=== PATIENT | male | born 1960 | race Caucasian/White ===

== ENCOUNTER → 2018-02-06 | Day surgery (SDC) | payer BC, OTHER ==
[2018-01-31 10:25] VITALS: BMI 29.0
[~2018-02-06] VITALS: Ht 185.4 cm; Wt 102.3 kg
[~2018-02-06] MED LIST: ASPCH81X PO; CHOL1TAB46 PO; DIPH25CA65 PO; EMPA1TAB3 PO; EZET10TA63 PO; FENO134C PO; FENTANYL CITRATE INJ 50 MCG/1 ML 2 ML VIAL ONE; FLUT50SP45 NAE; INSU1.2I SC; LIDOCAINE HCL 2% 2 ML VIAL (20MG/ML) ONE; LOSA50TA6 PO; METF1TAB53 PO; OMEG10007 PO; PROPOFOL IV EMULSION 10 MG/ML 20 ML VIAL IV ONE; RANITAB6 PO; SIME1CAP14 PO
[2018-02-06 10:58] VITALS: Ht 185.4 cm; Wt 102.3 kg
--- NOTE | 2018-02-06 11:52 | Endo History and Physical ---
History & Physical Date of Service: Feb 06, 2018. Chief Complaint: CIRRHOSIS Referring Physician: DR. IBRAHIM History of Present Illness cirrhosis, variceal screen Past Surgical History Hx Cardiac Surgery: No Hx Internal Defibrillator: No Hx Pacemaker: No Hx Abdominal Surgery: Yes (RAMIN) Hx of Implantable Prosthesis: No Hx Post-Op Nausea and Vomiting: No Hx Cancer Surgery: No Hx Thoracic Surgery: No Hx Orthopedic: No Hx Urinary Tract Surgery: No Family History None Social History Smoking Status: Never Smoker Hx Substance Use: No Hx Alcohol Use: No Allergies Coded Allergies: JENNIFER Inhibitors (Verified Allergy, Unknown, DRY COUGH WITH LISINOPRIL, 02/06) Ciprofloxacin (Verified Allergy, Unknown, RASH, 02/06/18) Liraglutide (Verified Allergy, Unknown, PANCREATITIS, 02/06/18) Phenol (Verified Allergy, Unknown, PANCREATITIS, 02/06/18) Propylene Glycol (Verified Allergy, Unknown, PANCREATITIS, 02/06/18) Statins (Verified Allergy, Unknown, MUSCLE ACHES/JOINT PAIN, 02/06/18) Sulfamethoxazole w/Trimethoprim (Verified Allergy, Unknown, RASH, 02/06/18) Current Medications Reported Home Medications Medications Dose Route/Sig Max Daily Dose Days Date Category Glucophage Ext Rel (Metformin Hcl) 1,000 Mg Tab 1,000 Mg PO BID 01/31/18 Reported Dodson-3 (Fish Oil) 1 Ea Cap 1 Cap PO QAM 01/31/18 Reported Allergy Nasal [place] 24 Ho (Fluticasone Propionate (Nasal)) 50 Mcg/Act Spr 1 [place] MELVINA DIRECTED PRN 01/31/18 Reported Benadryl Allergy (Diphenhydramine Hcl) 25 Mg Cap 1 Cap PO HS PRN 01/31/18 Reported Eql Gas Relief (Simethicone) 125 Mg Cap 1 Cap PO HS PRN 01/31/18 Reported Zantac 150 Maximum Streng (Ranitidine Hcl) 150 Mg Tab 1 Tab PO BID 01/31/18 Reported Aspirin Chewable (Aspirin) 81 Mg Chew 81 Mg PO QAM 01/31/18 Reported Vitamin D3 (Cholecalciferol) 5,000 Unit Tab 1 Tab PO QAM 01/31/18 Reported Zetia (Ezetimibe) 10 Mg Tab 10 Mg PO QPM 01/31/18 Reported Tricor (Fenofibrate Micronized) 134 Mg Cap 134 Mg PO QAM 01/31/18 Reported Cozaar (Losartan Potassium) 50 Mg Tab 50 Mg PO QAM 01/31/18 Reported Jardiance (Empagliflozin) 25 Mg Tab 1 Tab PO QAM 01/31/18 Reported Toutaio Solostar (Insulin Glargine) 300 Unit/Ml Inj 28 Unit SC HS 01/31/18 Reported Vital Signs Weight (Kilograms): 102.27 Height (Feet): 6 Height (Inches): 1 Date Time Temp Pulse Resp B/P (MAP) Pulse Ox O2 Delivery O2 Flow Rate FiO2 02/06/18 11:08 36.7 74 18 127/74 (91) 98 Room Air Physical Exam General Appearance: no apparent distress Respiratory/Chest: Auscultation: breath sounds normal Cardiovascular: Heart Auscultation: RRR Abdomen: Inspection & Palpation: soft Assessment and Plan EGD for varices
--- NOTE | 2018-02-06 12:20 | Discharge Instructions ---
Endoscopy Patient Instructions Date / Procedure(s) Performed Feb 06, 2018. EGD Allergy Information Coded Allergies: JENNIFER Inhibitors (Verified Allergy, Unknown, DRY COUGH WITH LISINOPRIL, 02/06) Ciprofloxacin (Verified Allergy, Unknown, RASH, 02/06/18) Liraglutide (Verified Allergy, Unknown, PANCREATITIS, 02/06/18) Phenol (Verified Allergy, Unknown, PANCREATITIS, 02/06/18) Propylene Glycol (Verified Allergy, Unknown, PANCREATITIS, 02/06/18) Statins (Verified Allergy, Unknown, MUSCLE ACHES/JOINT PAIN, 02/06/18) Sulfamethoxazole w/Trimethoprim (Verified Allergy, Unknown, RASH, 02/06/18) Discharge Date / Findings Feb 06, 2018. Grade 2 varices, mild portal gastropathy, no gastric varices Medication Instructions Stopped Medication(s): EVERYTHING EXCEPT AM MEDS Resume all stopped medications. Begin nadolol 20 mg and recheck BP and pulse in 2 weeks. Provider Instructions Activity Restrictions - No exercising or heavy lifting for 24 hours. - Do not drink alcohol the day of the procedure. - Do not drive a car or operate machinery until the day after the procedure. - Do not make any important decisions or sign important papers in 24 hours after the procedure. Following Day: - Return to full activity which may include returning to work/school. Diet Start your diet with liquids and light foods (jello, soup, juice, toast). Then eat your usual diet if not nauseated. Treatment For Common After Affects For mild abdominal pain, bloating, or excessive gas: - Rest - Eat lightly - Lie on right side Follow-Up Information Follow-up with DR. IBRAHIM as scheduled Anesthesia Information What You Should Know You have had a procedure that required some medicine to reduce anxiety and discomfort. This treatment is called moderate sedation. After receiving the treatment, you may be sleepy, but you will be able to breathe on your own. The effects of the treatment may last for several hours. Follow these instructions along with Activity/Diet recommendations noted above: * Do NOT do anything where dizziness or clumsiness would be dangerous. * Rest quietly at home today, then you can be up and about tomorrow. * Have a responsible person stay with you the rest of today. * You may have had an I.V. today. If so, you may take the dressing off later today. Recommendations Call your doctor if: * Trouble breathing * Continuous vomiting for more than 24 hours * Temperature above 101 degrees * Severe abdominal pain or bloating * Pain not relieved by pain medicine ordered * There is increased drainage or redness from any incision * A large amount of rectal bleeding greater than 2-3 tablespoons. (If you had a polyp/s removed or have hemorrhoids, a small amount of blood - from the rectum is to be expected.) * You have any unanswered questions or concerns. IN THE EVENT OF A SERIOUS EMERGENCY, GO TO THE NEAREST EMERGENCY ROOM Your discharge instructions were prepared by provider Sakina Man. Patient Instructions Signature Page Indra Hollins Patient (or Guardian) Signature/Date: I have read and understand the instructions given to me by my caregivers. Caregiver/RN/Doctor Signature/Date: The above-named patient and/or guardian has received patient instructions on this date. + Original Patient Signature Page (only) stays with chart. Please make copy for patient.
--- NOTE | 2018-02-06 12:36 | GI REPORT ---
Procedure Date: 02/06/2018 12:03 PM Procedure: Upper GI endoscopy Indications: Cirrhosis rule out esophageal varices Medicines: See the Anesthesia note for documentation of the administered medications Complications: No immediate complications. Estimated Blood Loss: Estimated blood loss: none. Procedure: Pre-Anesthesia Assessment: - After reviewing the risks and benefits, the patient was deemed in satisfactory condition to undergo the procedure. - ASA Grade Assessment: II - A patient with mild systemic disease. After obtaining informed consent, the endoscope was passed under direct vision. Throughout the procedure, the patient's blood pressure, pulse, and oxygen saturations were monitored continuously. The On-site loaner was introduced through the mouth, and advanced to the second part of duodenum. The upper GI endoscopy was accomplished without difficulty. The patient tolerated the procedure well. Findings: The Z-line was found 42 cm from the incisors. Two columns of grade II varices were found in the middle third of the esophagus and in the lower third of the esophagus, without high risk stigmata. There was mild portal gastropathy in the body and fundus. The stomach was otherwise normal. The duodenum was normal. Impression: - G2 esophageal varices. No gastric varices. Mild portal gastropathy. Recommendation: - Discharge patient to home. Consider begining Nadolol 20 mg. Sakina Spencer M.D. Sakina Spencer MD 02/06/2018 12:36:33 PM This report has been signed electronically. Note Initiated On: 02/06/2018 12:03 PM I attest to the content of the Intraoperative Record and orders documented therein, exceptions below
[2018-02-06 12:59] VITALS: BP 112/72; PULSE 73; O2SAT 97
--- NOTE | 2018-02-06 13:05 | Anesthesiology Progress Note ---
Anesthesia Post Op Note Date & Time Feb 06, 2018 at 13:04 Vital Signs Pain Intensity: 0 Vital Signs Past 12 Hours Date Time Temp Pulse Resp B/P (MAP) Pulse Ox O2 Delivery O2 Flow Rate FiO2 02/06/18 12:59 73 20 112/72 (85) 97 Room Air 02/06/18 12:45 71 20 129/62 (84) 97 Room Air 02/06/18 12:35 72 20 111/68 (82) 96 Room Air 02/06/18 12:20 36 71 16 121/58 (79) 96 Room Air 02/06/18 11:08 36.7 74 18 127/74 (91) 98 Room Air Notes Mental Status: alert / awake / arousable, participated in evaluation Pt Amnestic to Procedure: Yes Nausea / Vomiting: adequately controlled Pain: adequately controlled Airway Patency, RR, SpO2: stable & adequate BP & HR: stable & adequate Hydration State: stable & adequate Anesthetic Complications: no major complications apparent
== END | disposition home or self-care (01) ==
LOC: C.GI 10:35
PROVIDERS: ATTEND Internal Medicine Gastroenterology
DX: K74.60 Unspecified cirrhosis of liver (principal); I85.00 Esophageal varices without bleeding; K31.89 Other diseases of stomach and duodenum; E11.9 Type 2 diabetes mellitus without complications; Z88.2 Allergy status to sulfonamides; Z79.82 Long term (current) use of aspirin; Z79.4 Long term (current) use of insulin; Z79.899 Other long term (current) drug therapy